=== PATIENT | female | born 1955 | race Caucasian/White ===

== ENCOUNTER 2016-11-12 00:29 | Emergency (ER) | payer OTHER ==
[~2016-11-12] VITALS: Ht 170.2 cm; Wt 79.5 kg
[~2016-11-12 00:29] MED LIST: ERGO400C PO; MOT200T1 PO; SCOP1PAT TD; SYN.112T PO; VITA0.4T5 PO; VITE PO
[2016-11-12 00:31] VITALS: BP 113/62; PULSE 90; RESP 18; O2SAT 97
--- NOTE | 2016-11-12 00:32 | ED.REPORT ---
HPI-NVD Date of Service Nov 12, 2016 ED Provider: Alex Portillo MD A 61 year old female with a history of UTI is brought to the ED via EMS due to nausea, vomiting, and diarrhea. This is accompanied by abdominal pain and orthostatic dizziness. The pt was feeling well today until 19:00 when she suddenly began experiencing these symptoms. Zofran given en route seemed to help significantly. The pt denies fever, hematemesis or hematochezia, as well as any recent exposure to others with similar symptoms. Nursing Notes Stated Complaint: N,V,LOW BLOOD PRESSURE Chief Complaint: Female Abdominal Pain Nursing Notes Reviewed: Yes Allergies: Coded Allergies: tetracycline (Verified Adverse Reaction, Intermediate, 07/06/09) Uncoded Allergies: fragrances (Adverse Reaction, Severe, 07/23/08) balsama brent (Adverse Reaction, Intermediate, 07/23/08) Scheduled Ergocalciferol-Expunged Drug, Do Not Renew! (Vitamin D-Expunged Drug, Do Not Renew!) 400 Unit Capsule 400 UNIT PO DAILY Ibuprofen-Expunged Drug, Do Not Renew! (Motrin-Expunged Drug, Do Not Renew!) 200 Mg Tab 200 MG PO PRN Levothyroxine Inactive Drug Do Not Use (Synthroid-Expunged Drug, Do Not Renew!) 112 Mcg Tablet 112 MCG PO DAILY Scopolamine-Expunged Drug, Do Not Renew! (Kudoynvyr-Ciln-Kvrztjkz Drug, Do Not Renew!) 1 Patch .72 H Patch.td72 1 PATCH TD PRN Tocopherol-Expunged Drug, Do Not Renew! (Vitamin E-Expunged Drug, Do Not Renew! ) 400 Unit Cap 400 UNIT PO DAILY Vitamin B Complex/Folic Acid (B-Complex 100 Tablet) 0.4 Mg Tablet 0.4 MG PO DAILY General Time Seen by MD: 00:31 Chief Complaint Vomiting Hx Obtained From: Patient, EMS Arrived By: Ambulance Onset Occurred: 5 - 8 hours ago Symptom Duration: Since onset Recent Healthcare: No recent doctor visit, No recent hospitalization Similar Sx Previous: No Past Medical History Past Medical History arthritis hypothyroidism left axillary breast pain UTI abscess Past Surgical History cystocele repair C1-T1 cervical fusion due to injury Reports: Hysterectomy Reports: Carpal tunnel Smoking History Former Smoker (quit 1975) Social History Alcohol Use: "Social" Other Social History: Good social support Ambulatory Status Independent Review of Systems Constitutional: Denies: Fever GI: Reports: Abdominal pain, Diarrhea, Nausea, Vomiting, Denies: Hematemesis, Hematochezia Skin: Denies Rash Neurologic: Reports: Dizziness Complete sys rev & neg: except as marked. Respiratory: Denies: Non-productive cough, Shortness of breath Cardiovascular: Denies: Chest pain Musculoskeletal: Denies: Back pain Physical Exam Initial Vital Signs Vital Signs (First) Date Time Temp Pulse Resp B/P Pulse Ox O2 Delivery O2 Flow Rate FiO2 11/12/16 00:31 37.2 90 18 113/62 97 Room Air Initial VS: Reviewed, Vital signs normal General/Constitutional: Awake, Alert Abdomen: Atraumatic, Soft minimally tender, nonlocalized ENT: Atraumatic, Airway patent, Mucous membranes moist Respiratory / Chest: Atraumatic, Breath sounds NL, Breath sounds = bilat, No respiratory distress Cardiovascular: Heart rate NL, Regular rhythm, Heart sounds NL Back: Atraumatic, Full range of motion Skin: Atraumatic, Color NL, No rash, Warm, Dry Neurologic: Oriented X3, Speech NL, No motor deficits, No sensory deficits Head / Eyes: Atraumatic, Normocephalic, PERRL, EOMI Neck: Atraumatic, Supple, Full range of motion Upper Extremity / MS: Atraumatic, Full range of motion Lower Extremity / Pelvis / MS: Atraumatic, Full range of motion Psychiatric: Affect NL, Mood NL Re-Eval/Medical Decision Med Decision/Clinical Course 61-year-old female with a history of vomiting and dehydration. They were unable to get of IV in her en route. She was given Zofran 8 mg ODT with complete resolution of her vomiting. She will be discharged home with a Zofran prepack, encourage oral intake. Source of Hx: Old records Re-Evaluation/Progress : Time of Eval: 02:24 Patient Status: Condition improved Re-Evaluation/Progress Note: Pt rechecked, who is feeling better. She is informed of her diagnosis and the plan for discharge. The pt understands and agrees with the plan. All questions are addressed at this time. Counseled Regarding: Diagnosis, Need for follow-up, When/why to return to ED Discharge & Departure Impression: Primary Impression: Vomiting Vomiting type: unspecified Vomiting Intractability: non-intractable Nausea presence: with nausea Qualified Code: R11.2 - Nausea with vomiting, unspecified Disposition: Home Discharge Condition All VS Reviewed: Yes Condition: Stable Patient Instructions: Acute Nausea and Vomiting (ED) Additional Instructions: Your vomiting is likely due to a viral gastroenteritis. This could be food borne or acquired from someone in the community. No specific treatment is available. Ondansetron 4 mg ODT, 1 dissolved orally 4 times a day as needed for nausea and vomiting, #4 dispensed. Small amounts of clear liquids frequently. Follow-up if you persistent symptoms. Call me at [phone] between the hours of 9 PM and 6 AM if you have any questions or concerns. Referrals: Laura Howard MD (PCP) Scribe Attestation Portions of this note were transcribed by Neelam Thomas. I, Dr. Portillo personally performed the history, physical exam and medical decision-making; I reviewed and confirmed the accuracy of the information in the transcribed note. Signed by: Nicanor Pappas, 11/12/2016 and 0234. copies to: Laura Howard MD, Howard L MD Nov 12, 2016 00:32 NEELAM THOMAS Nov 12, 2016 00:53
[2016-11-12] MEDS ORDERED: _Ondansetron ODT 4 mg Tablet PO PRN (02:25)
[2016-11-12 02:35] VITALS: BP 112/63; PULSE 82; RESP 16; O2SAT 98
== END 2016-11-12 02:32 | disposition home or self-care (01) ==
LOC: SED 00:29
DX: R11.2 Nausea with vomiting, unspecified (principal); R42 Dizziness and giddiness; R10.9 Unspecified abdominal pain; R19.7 Diarrhea, unspecified; E03.9 Hypothyroidism, unspecified; Z87.891 Personal history of nicotine dependence; Z88.1 Allergy status to other antibiotic agents